=== PATIENT | female | born 1970 | race Caucasian/White ===

== ENCOUNTER → 2017-10-14 | Outpatient (CLI) | payer OTHER ==
--- NOTE | 2017-10-15 11:29 | MM ---
Reason for exam: screening (asymptomatic). Last mammogram was performed 1 year ago. History: Patient is postmenopausal. Family history of breast cancer in grandmother. Physical Findings: A clinical breast exam by your physician is recommended on an annual basis and results should be correlated with mammographic findings. MG Screening Mammo w CAD Bilateral CC and MLO view(s) were taken. Prior study comparison: October 02, 2016, bilateral MG screening mammo w CAD. July 24, 2015, bilateral MG screening mammo w CAD. The breast tissue is almost entirely fat. Stable benign calcifications. No significant changes when compared with prior studies. ASSESSMENT: Benign, BI-RAD 2 RECOMMENDATION: Routine screening mammogram of both breasts in 1 year.
== END ==
LOC: RADMAMWWP 12:30
PROVIDERS: ATTEND Internal Medicine
DX: Z12.31 Encounter for screening mammogram for malignant neoplasm of breast (principal)

== ENCOUNTER 2018-04-28 12:43 | Inpatient (IN) | payer OTHER ==
[2018-04-28] MEDS ORDERED: SODIUM CHLORIDE 0.9% 1,000 ML IV STA (13:18)
[2018-04-28] MEDS ORDERED: methylPREDNISolone SOD SUCCI 125 MG/2 ML VIAL IV STA (13:18)
[2018-04-28] MEDS ORDERED: IPRATROPIUM-ALBUTEROL 3 ML NEB INHALATION STA (13:18)
--- NOTE | 2018-04-28 13:22 | ED ---
General Adult HPI - General Chief complaint: Shortness of Breath Stated complaint: SOB Time Seen by Provider: 04/28/18 13:08 Source: patient, EMS, RN notes reviewed Mode of arrival: EMS Limitations: no limitations - History of Present Illness Initial comments: Chief complaint and history of present illness this is a 47-year-old female with a history in the past of asthma. She's not had trouble for over 5 years while receiving her Xolair shots. 2 days ago she started having a cough. Wheezing. Used to grandsons albuterol to good effect but persists. Emergency room her pulse ox was in the high 80s on nasal O2 after updraft with 95. Patient continues to be wheezing. No pain other than from frequent coughing. No sweats. - Related Data Home Medications Medication Instructions Recorded Confirmed Albuterol Inhaler [Ventolin Hfa 2 puff INHALATION RT-Q6H PRN 04/28/18 04/28/18 Inhaler] Albuterol Nebulized [Ventolin 2.5 mg INHALATION RT-Q6H PRN 04/28/18 04/28/18 Nebulized] diphenhydrAMINE HCL [Benadryl] 25 mg PO Q6H PRN 04/28/18 04/28/18 predniSONE See Taper PO DAILY 04/28/18 04/28/18 Allergies Allergy/AdvReac Type Severity Reaction Status Date / Time No Known Allergies Allergy Verified 04/28/18 13:08 Review of Systems ROS Statement: Those systems with pertinent positive or pertinent negative responses have been documented in the HPI. Review of systems. No headache or visual acuity changes complains of being short of breath with frequent coughing. No chest heaviness or pain other than for muscle pain from frequent coughing. No back pain no nausea no vomiting no abdominal pain no neuro deficits. All systems are reviewed. Past medical problems significant for asthma, GERD, hyperlipidemia, migraines and hypothyroidism. Her surgeries include a partial hysterectomy, wisdom teeth extraction and bunionectomies. Family history includes cancers of lung, skin and breast. Patient quit smoking just 7 days ago. Strongly advised this never smoke again. Dr. lozano doctor about ways to help her stop smoking. Denies alcohol use. No known ALLERGIES. ROS Other: All systems not noted in ROS Statement are negative. Past Medical History Past Medical History: Asthma, GERD/Reflux, Hyperlipidemia Additional Past Medical History / Comment(s): migraines, hypothyroidism History of Any Multi-Drug Resistant Organisms: None Reported Past Surgical History: Hysterectomy Additional Past Surgical History / Comment(s): wisdom, bunions, Past Psychological History: No Psychological Hx Reported Smoking Status: Former smoker Past Alcohol Use History: None Reported Past Drug Use History: Marijuana General Exam - General Exam Comments Initial Comments: General: The patient is awake and alert, here because of shortness of breath and frequent coughing. No fever. Vital signs temp 98.8 pulse 89 respiratory rate 20 pulse ox 95% on 2 L. Blood pressure 150/78 Eye: Pupils are equal, round and reactive to light, extra-ocular movements are intact ; there is normal conjunctiva bilaterally. No signs of icterus. Ears, nose, mouth and throat: There are moist mucous membranes and no oral lesions. Neck: The neck is supple, there is no tenderness or JVD. Cardiovascular: There is a regular rate and rhythm. No murmur, rub or gallop is appreciated. Respiratory: Inspiratory and expiratory wheezing. Gastrointestinal: Soft, non-distended, non-tender abdomen without masses or organomegaly noted. There is no rebound or guarding present. No CVA tenderness. Bowel sounds are unremarkable. Back: There is no tenderness to palpation in the midline. There is no obvious deformity. No rashes noted. Musculoskeletal: Normal ROM, no tenderness, There is no pedal edema. There is no calf tenderness or swelling. Sensation intact. Pulses equal bilaterally 2+. Neurological: No neuro deficits Skin: Recently treated for some poisoning with steroids and Benadryl. And since subsided. Psychiatric: Cooperative, Limitations: no limitations Course Vital Signs 04/28/18 04/28/18 04/28/18 12:51 13:30 13:39 Temperature 98.8 F Pulse Rate 89 108 H 110 H Respiratory 20 Rate Blood Pressure 150/78 O2 Sat by Pulse 95 Oximetry Medical Decision Making - Medical Decision Making Medical decision making; this is a 47-year-old female here for complaint of difficulty breathing. Past history of asthma. Recently stopped smoking just 7 days ago. Coughed for the past 2 days complains of musculoskeletal discomfort to her chest. EKG was done and does not show any acute ST elevation. Otherwise normal sinus rhythm with a rate of only 83. Labs show white count of 14.8 hemoglobin 16 hematocrit of 47 with an INR 1.0. D-dimer 0.29 BUN 13 creatinine 0.7 GFR greater than 90. Potassium 3.7 glucose 116. Chest x-ray was done AP and lateral view and reviewed by radiologist his findings are there is no focal airspace opacity, pleural effusion, or pneumothorax seen. Cardiac silhouette size within normal limits. The osseous structures are intact. There is bronchial wall thickening. Impression correlate for bronchitis, reactive airway disease, follow-up is indicated. As read by Dr. Griffith. The plant this time the patient be admitted to her family physician. Started on Levaquin. Continued with updrafts and IV steroids. - Lab Data Result diagrams: 04/28/18 13:40 04/28/18 13:40 Lab Results 04/28/18 04/28/18 04/28/18 Range/Units 13:40 13:40 13:40 WBC 14.8 H (3.8-10.6) k/uL RBC 5.55 H (3.80-5.40) m/uL Hgb 16.0 (11.4-16.0) gm/dL Hct 47.5 H (34.0-46.0) % MCV 85.6 (80.0-100.0) fL MCH 28.8 (25.0-35.0) pg MCHC 33.7 (31.0-37.0) g/dL RDW 14.1 (11.5-15.5) % Plt Count 216 (150-450) k/uL Neutrophils % 89 % Lymphocytes % 5 % Monocytes % 5 % Eosinophils % 1 % Basophils % 0 % Neutrophils # 13.1 H (1.3-7.7) k/uL Lymphocytes # 0.7 L (1.0-4.8) k/uL Monocytes # 0.7 (0-1.0) k/uL Eosinophils # 0.1 (0-0.7) k/uL Basophils # 0.0 (0-0.2) k/uL PT 10.1 (9.0-12.0) sec INR 1.0 (<1.2) APTT 22.9 (22.0-30.0) sec D-Dimer 0.29 (<0.60) mg/L FEU Sodium 141 (137-145) mmol/L Potassium 3.7 (3.5-5.1) mmol/L Chloride 103 (98-107) mmol/L Carbon Dioxide 25 (22-30) mmol/L Anion Gap 13 mmol/L BUN 13 (7-17) mg/dL Creatinine 0.70 (0.52-1.04) mg/dL Est GFR (CKD-EPI)AfAm >90 (>60 ml/min/1.73 sqM) Est GFR (CKD-EPI)NonAf >90 (>60 ml/min/1.73 sqM) Glucose 116 H (74-99) mg/dL Calcium 9.4 (8.4-10.2) mg/dL Total Bilirubin 0.7 (0.2-1.3) mg/dL AST 17 (14-36) U/L ALT 30 (9-52) U/L Alkaline Phosphatase 97 (38-126) U/L NT-Pro-B Natriuret Pep pg/mL Total Protein 7.0 (6.3-8.2) g/dL Albumin 4.4 (3.5-5.0) g/dL 04/28/18 Range/Units 13:40 WBC (3.8-10.6) k/uL RBC (3.80-5.40) m/uL Hgb (11.4-16.0) gm/dL Hct (34.0-46.0) % MCV (80.0-100.0) fL MCH (25.0-35.0) pg MCHC (31.0-37.0) g/dL RDW (11.5-15.5) % Plt Count (150-450) k/uL Neutrophils % % Lymphocytes % % Monocytes % % Eosinophils % % Basophils % % Neutrophils # (1.3-7.7) k/uL Lymphocytes # (1.0-4.8) k/uL Monocytes # (0-1.0) k/uL Eosinophils # (0-0.7) k/uL Basophils # (0-0.2) k/uL PT (9.0-12.0) sec INR (<1.2) APTT (22.0-30.0) sec D-Dimer (<0.60) mg/L FEU Sodium (137-145) mmol/L Potassium (3.5-5.1) mmol/L Chloride (98-107) mmol/L Carbon Dioxide (22-30) mmol/L Anion Gap mmol/L BUN (7-17) mg/dL Creatinine (0.52-1.04) mg/dL Est GFR (CKD-EPI)AfAm (>60 ml/min/1.73 sqM) Est GFR (CKD-EPI)NonAf (>60 ml/min/1.73 sqM) Glucose (74-99) mg/dL Calcium (8.4-10.2) mg/dL Total Bilirubin (0.2-1.3) mg/dL AST (14-36) U/L ALT (9-52) U/L Alkaline Phosphatase (38-126) U/L NT-Pro-B Natriuret Pep 203 pg/mL Total Protein (6.3-8.2) g/dL Albumin (3.5-5.0) g/dL Disposition Clinical Impression: Pneumonia Disposition: ADMITTED IP TO THIS HOSP Condition: Fair Is patient prescribed a controlled substance at d/c from ED?: No Referrals: Sreekanth Ledbetter MD [Primary Care Provider] - 1-2 days
[2018-04-28 13:50] LABS: Basophils % (A) 0 %; Eosinophils # (A) 0.1 k/uL (0-0.7); Eosinophils % (A) 1 %; HCT 47.5 % (34.0-46.0); Lymphocytes # (A) 0.7 k/uL (1.0-4.8); Lymphocytes % (A) 5 %; MCH 28.8 pg (25.0-35.0); MCHC 33.7 g/dL (31.0-37.0); MCV 85.6 fL (80.0-100.0); Mean Platelet Volume 6.3; Monocytes # (A) 0.7 k/uL (0-1.0); Monocytes % (A) 5 %; Neutrophils # (A) 13.1 k/uL (1.3-7.7); Neutrophils % (A) 89 %; Platelet Count 216 k/uL (150-450); RBC 5.55 m/uL (3.80-5.40); RDW 14.1 % (11.5-15.5); WBC 14.8 k/uL (3.8-10.6)
--- NOTE | 2018-04-28 13:56 | XR ---
EXAMINATION TYPE: XR chest 2V DATE OF EXAM: 04/28/2018 COMPARISON: NONE HISTORY: Difficulty breathing TECHNIQUE: Frontal and lateral views of the chest are obtained. FINDINGS: There is no focal air space opacity, pleural effusion, or pneumothorax seen. The cardiac silhouette size is within normal limits. The osseous structures are intact. There is bronchial wall thickening. IMPRESSION: Correlate for bronchitis, reactive airways disease, follow-up as indicated.
[2018-04-28 13:59] LABS: ALT 30 U/L (9-52); AST 17 U/L (14-36); Albumin 4.4 g/dL (3.5-5.0); Alkaline Phosphatase 97 U/L (38-126); Anion Gap 13 mmol/L; Blood Urea Nitrogen 13 mg/dL (7-17); Calcium 9.4 mg/dL (8.4-10.2); Carbon Dioxide 25 mmol/L (22-30); Chloride 103 mmol/L (98-107); Glucose 116 mg/dL (74-99); Potassium 3.7 mmol/L (3.5-5.1); Sodium 141 mmol/L (137-145); Total Bilirubin 0.7 mg/dL (0.2-1.3)
[2018-04-28 14:13] LABS: D-Dimer 0.29 mg/L FEU (<0.60); Partial Thromboplastin Time 22.9 sec (22.0-30.0); Prothrombin Time 10.1 sec (9.0-12.0)
[2018-04-28 14:16] LABS: Creatine Kinase 37 U/L (30-135)
[2018-04-28] MEDS ORDERED: LEVOFLOXACIN 500MG-D5W PMX 500 MG in DEXTROSE/WATER 1 100ML.BAG IVPB STA (14:27)
[2018-04-28 14:29] LABS: Creatine Kinase MB 0.7 ng/mL (0.0-2.4); Troponin I <0.012 ng/mL (0.000-0.034)
[2018-04-28] MEDS ORDERED: NALOXONE 0.4 MG/ML 1 ML VIAL IV PRN (14:30)
[2018-04-28] MEDS ORDERED: ALBUTEROL NEBULIZED 2.5 MG/3 ML INHALATION PRN (14:35)
[2018-04-28] MEDS: SODIUM CHLORIDE 0.9% 1,000 ML IV SCH (14:50)
[2018-04-28] MEDS: ACETAMINOPHEN TAB 325 MG TAB PO PRN ×2 (15:39→21:00)
[2018-04-28 17:06] LABS: Glucose,Whole Blood 170 mg/dL (75-99)
[2018-04-28] MEDS: IPRATROPIUM-ALBUTEROL 3 ML NEB INHALATION PRN (20:36)
[2018-04-28 20:59] LABS: Glucose,Whole Blood 193 mg/dL (75-99)
[2018-04-28] MEDS: INSULIN ASPART 100 UNIT/ML 1 ML 10 ML VIAL SQ SCH (21:00)
[2018-04-28] MEDS: methylPREDNISolone SOD SUCCI 125 MG/2 ML VIAL IV SCH (23:40)
[2018-04-29] MEDS: SODIUM CHLORIDE 0.9% 1,000 ML IV SCH ×2 (06:16→16:49)
[2018-04-29 07:13] LABS: Glucose,Whole Blood 132 mg/dL (75-99)
[2018-04-29] MEDS: IPRATROPIUM-ALBUTEROL 3 ML NEB INHALATION PRN (07:38)
[2018-04-29 07:51] LABS: Basophils % (A) 0 %; Eosinophils % (A) 0 %; HCT 45.3 % (34.0-46.0); HGB 15.1 gm/dL (11.4-16.0); Lymphocytes # (A) 0.9 k/uL (1.0-4.8); Lymphocytes % (A) 4 %; MCH 28.5 pg (25.0-35.0); MCHC 33.3 g/dL (31.0-37.0); MCV 85.7 fL (80.0-100.0); Mean Platelet Volume 6.2; Monocytes # (A) 0.6 k/uL (0-1.0); Monocytes % (A) 3 %; Neutrophils # (A) 19.5 k/uL (1.3-7.7); Neutrophils % (A) 92 %; Platelet Count 247 k/uL (150-450); RBC 5.29 m/uL (3.80-5.40); RDW 13.7 % (11.5-15.5); WBC 21.2 k/uL (3.8-10.6)
[2018-04-29] MEDS: ACETAMINOPHEN TAB 325 MG TAB PO PRN ×2 (08:22→16:48)
[2018-04-29] MEDS: methylPREDNISolone SOD SUCCI 125 MG/2 ML VIAL IV SCH ×3 (08:22→23:20)
[2018-04-29] MEDS: INSULIN ASPART 100 UNIT/ML 1 ML 10 ML VIAL SQ SCH ×4 (08:25→21:43)
[2018-04-29] MEDS ORDERED: IPRATROPIUM-ALBUTEROL 3 ML NEB INHALATION PRN (08:41)
[2018-04-29] MEDS: FAMOTIDINE 20 MG TAB PO SCH (09:05)
[2018-04-29] MEDS: ENOXAPARIN 40 MG/0.4 ML SYRINGE SQ SCH (09:05)
--- NOTE | 2018-04-29 10:13 | P.HPIM ---
History of Present Illness H&P Date: 04/29/18 Chief Complaint: Worsening shortness of breath and cough This is a 47-year-old female with a known past medical history of asthma, nicotine dependence, GERD, hyperlipidemia and migraines. Patient presents to the emergency room with a 2 day complaint of worsening shortness of breath and cough. Patient reports using her grandson's albuterol nebulizer treatment and also needing her albuterol inhaler. Symptoms not improved. And came into the emergency room for further evaluation and treatment. Pulse ox was 80% on oxygen. Per ER report after updraft went up to 95%. Chest x-ray showed a possible bronchitis. White count elevated at 14.8. Troponins were negative 2 and d-dimer was normal. She was started on Levaquin and IV Solu-Medrol and bronchodilators for an acute COPD exacerbation and bronchitis. Patient does report the cough being productive. Pulmonary service has been consulted. Patient reports using Xolair shots over the past 5 years to help control her symptoms. This is her first hospitalization. She was recently on oral prednisone and Benadryl for heat rash per patient. Patient denies any fever chills or sweats. Denies any nausea or vomiting. Denies any bowel movement changes or urinary symptoms. She is reporting extreme shortness of breath with any activity. Review of Systems Please refer to HPI otherwise unremarkable Past Medical History Past Medical History: Asthma, GERD/Reflux, Hyperlipidemia Additional Past Medical History / Comment(s): migraines, hypothyroidism History of Any Multi-Drug Resistant Organisms: None Reported Past Surgical History: Hysterectomy Additional Past Surgical History / Comment(s): partial hysterectomy ,wisdom, bunionectomy,d&c Past Anesthesia/Blood Transfusion Reactions: No Reported Reaction Additional Past Anesthesia/Blood Transfusion Reaction / Comment(s): lives with sister. is independant. 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 has nebulizer. Smoking Status: Current every day smoker - Past Family History Mother Family Medical History: Coronary Artery Disease (CAD) Additional Family Medical History / Comment(s): triple vessel cabg Father Family Medical History: Cancer Additional Family Medical History / Comment(s): smoker, etoh, lung cancer Medications and Allergies Home Medications Medication Instructions Recorded Confirmed Type Albuterol Inhaler [Ventolin Hfa 2 puff INHALATION RT-Q6H PRN 04/28/18 04/28/18 History Inhaler] Albuterol Nebulized [Ventolin 2.5 mg INHALATION RT-Q6H PRN 04/28/18 04/28/18 History Nebulized] diphenhydrAMINE HCL [Benadryl] 25 mg PO Q6H PRN 04/28/18 04/28/18 History predniSONE See Taper PO DAILY 04/28/18 04/28/18 History Allergies Allergy/AdvReac Type Severity Reaction Status Date / Time No Known Allergies Allergy Verified 04/28/18 13:08 Physical Exam Vitals: Vital Signs Temp Pulse Pulse Resp BP BP Pulse Ox 04/29/18 07:50 88 04/29/18 07:41 80 91 L 04/29/18 06:35 97.1 F L 87 16 134/77 92 L 04/28/18 23:00 98.3 F 83 20 120/72 91 L 04/28/18 20:49 96 04/28/18 20:36 92 90 L 04/28/18 16:50 18 04/28/18 15:49 18 04/28/18 15:27 97.7 F 86 20 117/65 90 L 04/28/18 14:49 92 20 148/70 92 L 04/28/18 13:39 110 H 04/28/18 13:30 108 H 04/28/18 12:51 98.8 F 89 20 150/78 95 Intake and Output 04/28/18 04/29/18 04/29/18 22:59 06:59 14:59 Other: Voiding Method Toilet # Voids 2 Head normocephalic Neck supple Lungs wheezing and coarse breath sounds noted bilaterally Heart regular rate and rhythm S1-S2, no rub or gallop Abdomen is soft nontender nondistended positive bowel sounds no hepatosplenomegaly Extremities no edema Neuro alert and orientated to 3 Results CBC & Chem 7: 04/29/18 07:27 04/28/18 13:40 Labs: Abnormal Lab Results - Last 24 Hours (Table) 04/28/18 04/28/18 04/28/18 Range/Units 13:40 13:40 17:03 WBC 14.8 H (3.8-10.6) k/uL RBC 5.55 H (3.80-5.40) m/uL Hct 47.5 H (34.0-46.0) % Neutrophils # 13.1 H (1.3-7.7) k/uL Lymphocytes # 0.7 L (1.0-4.8) k/uL Glucose 116 H (74-99) mg/dL POC Glucose (mg/dL) 170 H (75-99) mg/dL 04/28/18 04/29/18 04/29/18 Range/Units 20:57 07:11 07:27 WBC 21.2 H (3.8-10.6) k/uL RBC (3.80-5.40) m/uL Hct (34.0-46.0) % Neutrophils # 19.5 H (1.3-7.7) k/uL Lymphocytes # 0.9 L (1.0-4.8) k/uL Glucose (74-99) mg/dL POC Glucose (mg/dL) 193 H 132 H (75-99) mg/dL Thrombosis Risk Factor Assmnt - Choose All That Apply Each Factor Represents 1 point: Abnormal pulmonary function (COPD), Age 41-60 years, Obesity (BMI >25) Other Risk Factors: No Thrombosis Risk Factor Assessment Total Risk Factor Score: 3 Thrombosis Risk Factor Assessment Level: Moderate Risk Assessment and Plan Assessment: 1. Acute COPD exacerbation: Continue IV Solu-Medrol 60 mg every 8 hours. Change bronchodilators to 4 times a day and as needed every 2 hours. Pulmonary service has been consulted 2. Acute tracheobronchitis: No pneumonia on chest x-ray. Continue with the Levaquin. Check sputum culture. 3. History of mild intermittent asthma 4. Nicotine dependence: Patient reports quitting smoking 7 days ago. Discussed smoking cessation greater than 3 minutes 5. Hyperglycemia likely related to steroids. Continue sliding scale coverage 6. Leukocytosis: Likely related to her bronchitis and steroids GI prophylaxis Pepcid and DVT prophylaxis Lovenox Time with Patient: Greater than 30 (Greater than 60% of the total time spent in counseling and coordination of care.I performed an examination of the patient and discussed their management with the physician Comfort Station Attendant. I have reviewed the Physician Comfort Station Attendant's notes and agree with the documented findings and plan of care)
[2018-04-29] MEDS: IPRATROPIUM-ALBUTEROL 3 ML NEB INHALATION SCH ×3 (11:24→19:35)
[2018-04-29 12:31] LABS: Glucose,Whole Blood 157 mg/dL (75-99)
--- NOTE | 2018-04-29 13:18 | P.CNPUL ---
History of Present Illness Consult date: 04/29/18 Requesting physician: Sreekanth Ledbetter Reason for consult: dyspnea Chief complaint: shortness of breath History of present illness: This is a 47-year-old female patient being seen examined and evaluated today for consultation. This patient is well-known to our services. This patient came into the emergency room with complaints of progressive worsening shortness of breath that had been lasting over the last 2-3 days. She also complains of a cough. Patient has been on Xolair for approximately 5 years in our office and her chronic severe persistent asthma has been well controlled with that. She was not needing any other controller meds over the last 5 years. However in the last day or so she did use her son's albuterol inhaler without relief. Therefore she came into the emergency room. Her oxygen saturation was 80% with supplemental oxygen and then improved up to 95% post-nebulizer treatments. Her chest x-ray was reviewed and did show consistent findings of bronchitis. She had a WBC of 14.8. Patient was initiated on antibiotics and IV steroids and admitted to the hospital for further evaluation and workup. The patient is currently a smoker approximately 2 packs per week for 30 years. She is afebrile denies any further complaints. All labs and reports have been reviewed. Upon examination the patient was resting up in bed on 4 L of supplemental oxygen she denies home oxygen use. She continues to have the shortness of breath with exertion and activity as well as a cough. She has been unable to provide a sputum sample. Of note the patient's last Xolair shot was last Wednesday Review of Systems 14 point review of systems was completed and negative unless noted above in the HPI. Past Medical History Past Medical History: Asthma, GERD/Reflux, Hyperlipidemia Additional Past Medical History / Comment(s): migraines, hypothyroidism History of Any Multi-Drug Resistant Organisms: None Reported Past Surgical History: Hysterectomy Additional Past Surgical History / Comment(s): partial hysterectomy ,wisdom, bunionectomy,d&c Past Anesthesia/Blood Transfusion Reactions: No Reported Reaction Additional Past Anesthesia/Blood Transfusion Reaction / Comment(s): lives with sister. is independant. 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 has nebulizer. Smoking Status: Current every day smoker - Past Family History Mother Family Medical History: Coronary Artery Disease (CAD) Additional Family Medical History / Comment(s): triple vessel cabg Father Family Medical History: Cancer Additional Family Medical History / Comment(s): smoker, etoh, lung cancer Medications and Allergies Home Medications Medication Instructions Recorded Confirmed Type Albuterol Inhaler [Ventolin Hfa 2 puff INHALATION RT-Q6H PRN 04/28/18 04/28/18 History Inhaler] Albuterol Nebulized [Ventolin 2.5 mg INHALATION RT-Q6H PRN 04/28/18 04/28/18 History Nebulized] diphenhydrAMINE HCL [Benadryl] 25 mg PO Q6H PRN 04/28/18 04/28/18 History predniSONE See Taper PO DAILY 04/28/18 04/28/18 History Allergies Allergy/AdvReac Type Severity Reaction Status Date / Time No Known Allergies Allergy Verified 04/28/18 13:08 Physical Exam Vitals: Vital Signs Temp Pulse Pulse Resp BP BP Pulse Ox 04/29/18 11:36 86 04/29/18 11:26 90 04/29/18 07:50 88 04/29/18 07:45 16 04/29/18 07:41 80 91 L 04/29/18 06:35 97.1 F L 87 16 134/77 92 L 04/28/18 23:00 98.3 F 83 20 120/72 91 L 04/28/18 20:49 96 04/28/18 20:36 92 90 L 04/28/18 16:50 18 04/28/18 15:49 18 04/28/18 15:27 97.7 F 86 20 117/65 90 L 04/28/18 14:49 92 20 148/70 92 L 04/28/18 13:39 110 H 04/28/18 13:30 108 H Intake and Output 04/28/18 04/29/18 04/29/18 22:59 06:59 14:59 Other: Voiding Method Toilet # Voids 2 GENERAL EXAM: Alert, active, comfortable in no apparent distress. HEAD: Normocephalic. EYES: Normal reaction of pupils, equal size. NOSE: Clear with pink turbinates. THROAT: No erythema or exudates. NECK: No masses, no JVD. CHEST: No chest wall deformity. LUNGS: Lungs noted to be coarse throughout with an citrate and expiratory wheezing bilaterally CVS: S1 and S2 normal with no audible mumurs, regular rhythm. ABDOMEN: No hepatosplenomegaly, normal bowel sounds, no guarding or rigidity. EXTREMITIES: No edema noted, pedal pulses palpable. CENTRAL NERVOUS SYSTEM: No focal deficits, tone is normal in all 4 extremities. Results - Laboratory Findings CBC and BMP: 04/29/18 07:27 04/28/18 13:40 PT/INR, D-dimer PT 10.1 sec (9.0-12.0) 04/28/18 13:40 INR 1.0 (<1.2) 04/28/18 13:40 D-Dimer 0.29 mg/L FEU (<0.60) 04/28/18 13:40 Abnormal lab findings: Abnormal Labs 04/28/18 04/28/18 04/28/18 13:40 13:40 17:03 WBC 14.8 H RBC 5.55 H Hct 47.5 H Neutrophils # 13.1 H Lymphocytes # 0.7 L Glucose 116 H POC Glucose (mg/dL) 170 H 04/28/18 04/29/18 04/29/18 20:57 07:11 07:27 WBC 21.2 H RBC Hct Neutrophils # 19.5 H Lymphocytes # 0.9 L Glucose POC Glucose (mg/dL) 193 H 132 H 04/29/18 12:29 WBC RBC Hct Neutrophils # Lymphocytes # Glucose POC Glucose (mg/dL) 157 H - Diagnostic Findings Chest x-ray: report reviewed, image reviewed Assessment and Plan Assessment: Assessment Acute exacerbation of severe chronic persistent asthma Acute exacerbation of COPD Acute tracheobronchitis Nicotine dependence Plan Medications have been reviewed and will be continued as ordered. Continue with IV Solu-Medrol as well as antibiotics Continue with pulmonary hygiene, coughing and deep breathing exercises, and supportive care. Supplemental oxygen to maintain oxygen saturations of 92% or better. Continue nebulizer treatments. Add budesonide Initiate incentive spirometer and check peak flows GI and DVT prophylaxis. Obtain sputum culture Continue Xolair outpatient We will continue to monitor labs/results and adjust treatment as necessary. Further recommendations pending. I performed an examination of the patient and discussed their management with the nurse practitioner. I have reviewed the nurse practitioner's note and agree with the documented findings and plan of care.
[2018-04-29] MEDS ORDERED: LEVOFLOXACIN 500MG-D5W PMX 500 MG in DEXTROSE/WATER 1 100ML.BAG IVPB SCH (16:00)
[2018-04-29 17:05] LABS: Glucose,Whole Blood 179 mg/dL (75-99)
[2018-04-29] MEDS: BUDESONIDE 0.5 MG/2 ML NEBU INHALATION SCH (19:34)
[2018-04-29 21:19] LABS: Glucose,Whole Blood 177 mg/dL (75-99)
[2018-04-30] MEDS ORDERED: CALCIUM CARBONATE 500 MG CHEWABLE PO PRN (01:25)
[2018-04-30] MEDS ORDERED: CALCIUM CARBONATE 500 MG CHEWABLE PO ONE (01:27)
[2018-04-30] MEDS: SODIUM CHLORIDE 0.9% 1,000 ML IV SCH ×2 (06:25→16:17)
[2018-04-30 07:22] LABS: Glucose,Whole Blood 144 mg/dL (75-99)
[2018-04-30 07:49] LABS: Basophils % (A) 0 %; Eosinophils % (A) 0 %; HCT 42.4 % (34.0-46.0); HGB 13.7 gm/dL (11.4-16.0); Lymphocytes # (A) 0.9 k/uL (1.0-4.8); Lymphocytes % (A) 4 %; MCH 27.3 pg (25.0-35.0); MCHC 32.4 g/dL (31.0-37.0); MCV 84.5 fL (80.0-100.0); Monocytes # (A) 0.7 k/uL (0-1.0); Monocytes % (A) 3 %; Neutrophils # (A) 19.6 k/uL (1.3-7.7); Neutrophils % (A) 92 %; Platelet Count 275 k/uL (150-450); RBC 5.02 m/uL (3.80-5.40); RDW 13.8 % (11.5-15.5); WBC 21.3 k/uL (3.8-10.6)
[2018-04-30 08:07] LABS: ALT 29 U/L (9-52); AST 21 U/L (14-36); Albumin 3.6 g/dL (3.5-5.0); Alkaline Phosphatase 75 U/L (38-126); Anion Gap 11 mmol/L; Blood Urea Nitrogen 15 mg/dL (7-17); Calcium 9.7 mg/dL (8.4-10.2); Carbon Dioxide 22 mmol/L (22-30); Chloride 108 mmol/L (98-107); Glucose 131 mg/dL (74-99); Potassium 4.1 mmol/L (3.5-5.1); Sodium 141 mmol/L (137-145); Total Bilirubin 0.4 mg/dL (0.2-1.3); Total Protein 6.2 g/dL (6.3-8.2)
[2018-04-30] MEDS: ENOXAPARIN 40 MG/0.4 ML SYRINGE SQ SCH (08:07)
[2018-04-30] MEDS: FAMOTIDINE 20 MG TAB PO SCH (08:07)
[2018-04-30] MEDS: INSULIN ASPART 100 UNIT/ML 1 ML 10 ML VIAL SQ SCH ×4 (08:07→21:35)
[2018-04-30] MEDS: methylPREDNISolone SOD SUCCI 125 MG/2 ML VIAL IV SCH ×3 (08:07→23:26)
[2018-04-30] MEDS: LEVOFLOXACIN 500 MG TAB PO SCH (08:07)
[2018-04-30] MEDS: BUDESONIDE 0.5 MG/2 ML NEBU INHALATION SCH ×2 (08:08→20:12)
[2018-04-30] MEDS: IPRATROPIUM-ALBUTEROL 3 ML NEB INHALATION SCH ×4 (08:08→20:11)
[2018-04-30] MEDS: ACETAMINOPHEN TAB 325 MG TAB PO PRN ×2 (11:11→23:24)
[2018-04-30 12:01] LABS: Glucose,Whole Blood 126 mg/dL (75-99)
--- NOTE | 2018-04-30 13:08 | PN ---
PROGRESS NOTE DATE OF SERVICE: 04/30/2018. She is less short of breath, but feels tired. On physical examination, her blood pressure is 114/70, respiratory rate of 18, pulse rate of 77, temperature 98, O2 saturation on 4 L by nasal cannula is 92%. HEENT reveals pupils are equal. Chest reveals prolonged expiration with expiratory wheeze. Cardiovascular system reveals a S1, S2. Abdomen is soft. There is no edema. White count is 21.3 thousand, hemoglobin of 13.7, sodium 141, potassium 4.1, chloride 108, bicarb 22, BUN 15, creatinine 0.61. IMPRESSION: At this time: 1. Severe asthma with acute exacerbation. 2. Nicotine dependence. Continue IV Solu-Medrol, antibiotics. Increases activity level. Continue aerosolized steroids. Her prognosis at this time is fair. MMODL / IJN: [id number] /
--- NOTE | 2018-04-30 13:49 | P.PN ---
Subjective Progress Note Date: 04/30/18 This is a 47-year-old female with a known past medical history of asthma, nicotine dependence, GERD, hyperlipidemia and migraines. Patient presents to the emergency room with a 2 day complaint of worsening shortness of breath and cough. Patient reports using her grandson's albuterol nebulizer treatment and also needing her albuterol inhaler. Symptoms not improved. And came into the emergency room for further evaluation and treatment. Pulse ox was 80% on oxygen. Per ER report after updraft went up to 95%. Chest x-ray showed a possible bronchitis. White count elevated at 14.8. Troponins were negative 2 and d-dimer was normal. She was started on Levaquin and IV Solu-Medrol and bronchodilators for an acute COPD exacerbation and bronchitis. Patient does report the cough being productive. Pulmonary service has been consulted. Patient reports using Xolair shots over the past 5 years to help control her symptoms. This is her first hospitalization. She was recently on oral prednisone and Benadryl for heat rash per patient. Patient denies any fever chills or sweats. Denies any nausea or vomiting. Denies any bowel movement changes or urinary symptoms. She is reporting extreme shortness of breath with any activity. On 04/30/2018 patient is feeling better she has less shortness of breath and cough she is still having significant wheezing there is no headache or sore throat no chest pain no palpitation no nausea or vomiting no abdominal pain no diarrhea or constipation and no urinary symptoms. Patient is maintained on IV antibiotic and IV steroids and has shown some improvement. Objective - Vital Signs Vital signs: Vital Signs Temp 98.0 F 04/30/18 06:40 Pulse 92 04/30/18 13:27 Resp 18 04/30/18 06:40 BP 114/70 04/30/18 06:40 Pulse Ox 92 L 04/30/18 06:40 Intake & Output 04/29/18 04/30/18 04/30/18 18:59 06:59 18:59 Intake Total 800 Balance 800 Intake: Oral 800 Other: Voiding Method Toilet # Voids 2 1 - Exam Head normocephalic and atraumatic Neck supple no JVD Lungs wheezing and coarse breath sounds noted bilaterally Heart regular rate and rhythm S1-S2, no rub or gallop Abdomen is soft nontender nondistended positive bowel sounds no hepatosplenomegaly Extremities no edema Neuro alert and orientated to 3 - Labs CBC & Chem 7: 04/30/18 06:55 04/30/18 06:55 Labs: Abnormal Lab Results - Last 24 Hours (Table) 04/29/18 04/29/18 04/30/18 Range/Units 17:03 21:13 06:55 WBC 21.3 H (3.8-10.6) k/uL Neutrophils # 19.6 H (1.3-7.7) k/uL Lymphocytes # 0.9 L (1.0-4.8) k/uL Chloride (98-107) mmol/L Glucose (74-99) mg/dL POC Glucose (mg/dL) 179 H 177 H (75-99) mg/dL Total Protein (6.3-8.2) g/dL 04/30/18 04/30/18 04/30/18 Range/Units 06:55 07:20 11:59 WBC (3.8-10.6) k/uL Neutrophils # (1.3-7.7) k/uL Lymphocytes # (1.0-4.8) k/uL Chloride 108 H (98-107) mmol/L Glucose 131 H (74-99) mg/dL POC Glucose (mg/dL) 144 H 126 H (75-99) mg/dL Total Protein 6.2 L (6.3-8.2) g/dL Microbiology - Last 24 Hours (Table) 04/29/18 15:45 Gram Stain - Preliminary Sputum 04/28/18 13:40 Blood Culture - Preliminary Blood No Growth after 24 hours Assessment and Plan Plan: 1. Acute COPD exacerbation: Continue IV Solu-Medrol 60 mg every 8 hours. Change bronchodilators to 4 times a day and as needed every 2 hours. Pulmonary service has been consulted 2. Acute tracheobronchitis: No pneumonia on chest x-ray. Continue with the Levaquin. Check sputum culture. 3. History of mild intermittent asthma 4. Nicotine dependence: Patient reports quitting smoking 7 days ago. Discussed smoking cessation greater than 3 minutes 5. Hyperglycemia likely related to steroids. Continue sliding scale coverage 6. Leukocytosis: Likely related to her bronchitis and steroids Patient improving but still has significant symptoms Continue with current management patient is not ready yet for discharge
[2018-04-30 17:07] LABS: Glucose,Whole Blood 154 mg/dL (75-99)
[2018-04-30] MEDS: CALCIUM CARBONATE 500 MG CHEWABLE PO PRN (19:46)
[2018-04-30 21:18] LABS: Glucose,Whole Blood 157 mg/dL (75-99)
[2018-05-01] MEDS: SODIUM CHLORIDE 0.9% 1,000 ML IV SCH ×2 (05:31→15:05)
[2018-05-01 07:00] LABS: Glucose,Whole Blood 137 mg/dL (75-99)
[2018-05-01] MEDS: BUDESONIDE 0.5 MG/2 ML NEBU INHALATION SCH ×2 (07:31→19:42)
[2018-05-01] MEDS: IPRATROPIUM-ALBUTEROL 3 ML NEB INHALATION SCH ×4 (07:31→19:42)
[2018-05-01] MEDS: methylPREDNISolone SOD SUCCI 125 MG/2 ML VIAL IV SCH ×3 (08:07→23:30)
[2018-05-01] MEDS: ENOXAPARIN 40 MG/0.4 ML SYRINGE SQ SCH (08:07)
[2018-05-01] MEDS: INSULIN ASPART 100 UNIT/ML 1 ML 10 ML VIAL SQ SCH ×4 (08:07→22:14)
[2018-05-01] MEDS: FAMOTIDINE 20 MG TAB PO SCH (08:08)
[2018-05-01] MEDS: LEVOFLOXACIN 500 MG TAB PO SCH (08:08)
[2018-05-01 08:38] LABS: Basophils % (A) 0 %; Eosinophils # (A) 0.1 k/uL (0-0.7); Eosinophils % (A) 0 %; HCT 43.7 % (34.0-46.0); HGB 14.5 gm/dL (11.4-16.0); Lymphocytes % (A) 4 %; MCH 28.6 pg (25.0-35.0); MCHC 33.3 g/dL (31.0-37.0); MCV 86.1 fL (80.0-100.0); Mean Platelet Volume 6.4; Monocytes # (A) 0.6 k/uL (0-1.0); Monocytes % (A) 3 %; Neutrophils # (A) 21.5 k/uL (1.3-7.7); Neutrophils % (A) 92 %; Platelet Count 249 k/uL (150-450); RBC 5.08 m/uL (3.80-5.40); RDW 14.1 % (11.5-15.5); WBC 23.4 k/uL (3.8-10.6)
[2018-05-01 08:49] LABS: ALT 37 U/L (9-52); AST 28 U/L (14-36); Albumin 3.7 g/dL (3.5-5.0); Alkaline Phosphatase 80 U/L (38-126); Anion Gap 11 mmol/L; Blood Urea Nitrogen 18 mg/dL (7-17); Calcium 9.9 mg/dL (8.4-10.2); Carbon Dioxide 24 mmol/L (22-30); Chloride 107 mmol/L (98-107); Glucose 122 mg/dL (74-99); Potassium 4.1 mmol/L (3.5-5.1); Sodium 142 mmol/L (137-145); Total Bilirubin 0.4 mg/dL (0.2-1.3); Total Protein 6.3 g/dL (6.3-8.2)
[2018-05-01 11:25] LABS: Glucose,Whole Blood 129 mg/dL (75-99)
--- NOTE | 2018-05-01 13:19 | P.PN ---
Subjective Progress Note Date: 05/01/18 This is a 47-year-old female with a known past medical history of asthma, nicotine dependence, GERD, hyperlipidemia and migraines. Patient presents to the emergency room with a 2 day complaint of worsening shortness of breath and cough. Patient reports using her grandson's albuterol nebulizer treatment and also needing her albuterol inhaler. Symptoms not improved. And came into the emergency room for further evaluation and treatment. Pulse ox was 80% on oxygen. Per ER report after updraft went up to 95%. Chest x-ray showed a possible bronchitis. White count elevated at 14.8. Troponins were negative 2 and d-dimer was normal. She was started on Levaquin and IV Solu-Medrol and bronchodilators for an acute COPD exacerbation and bronchitis. Patient does report the cough being productive. Pulmonary service has been consulted. Patient reports using Xolair shots over the past 5 years to help control her symptoms. This is her first hospitalization. She was recently on oral prednisone and Benadryl for heat rash per patient. Patient denies any fever chills or sweats. Denies any nausea or vomiting. Denies any bowel movement changes or urinary symptoms. She is reporting extreme shortness of breath with any activity. On 04/30/2018 patient is feeling better she has less shortness of breath and cough she is still having significant wheezing there is no headache or sore throat no chest pain no palpitation no nausea or vomiting no abdominal pain no diarrhea or constipation and no urinary symptoms. Patient is maintained on IV antibiotic and IV steroids and has shown some improvement. On 05/01/2018 patient is alert and oriented, still complaining of cough and shortness of breath, still has audible wheezing, otherwise there is no complaints, there is no fever or chills no nausea or vomiting no abdominal pain no diarrhea and no urinary symptoms. She is complaining of occasional acid reflux symptoms. Objective - Vital Signs Vital signs: Vital Signs Temp 97.6 F 05/01/18 06:25 Pulse 76 05/01/18 12:10 Resp 18 05/01/18 06:25 BP 133/80 05/01/18 06:25 Pulse Ox 91 L 05/01/18 06:25 Intake & Output 04/30/18 05/01/18 05/01/18 18:59 06:59 18:59 Intake Total 640 800 Balance 640 800 Intake: Intake, IV Titration 640 Amount Sodium Chloride 0.9% 1, 640 000 ml @ 80 mls/hr IV . [id number] MOO Rx#:[id number] Oral 800 Other: # Voids 1 - Exam Head normocephalic and atraumatic Neck supple no JVD Lungs wheezing and coarse breath sounds noted bilaterally Heart regular rate and rhythm S1-S2, no rub or gallop Abdomen is soft nontender nondistended positive bowel sounds no hepatosplenomegaly Extremities no edema Neuro alert and orientated to 3 - Labs CBC & Chem 7: 05/01/18 08:15 05/01/18 08:15 Labs: Abnormal Lab Results - Last 24 Hours (Table) 04/30/18 04/30/18 05/01/18 Range/Units 17:04 21:14 06:59 WBC (3.8-10.6) k/uL Neutrophils # (1.3-7.7) k/uL BUN (7-17) mg/dL Glucose (74-99) mg/dL POC Glucose (mg/dL) 154 H 157 H 137 H (75-99) mg/dL 05/01/18 05/01/18 05/01/18 Range/Units 08:15 08:15 11:21 WBC 23.4 H (3.8-10.6) k/uL Neutrophils # 21.5 H (1.3-7.7) k/uL BUN 18 H (7-17) mg/dL Glucose 122 H (74-99) mg/dL POC Glucose (mg/dL) 129 H (75-99) mg/dL Microbiology - Last 24 Hours (Table) 04/28/18 13:40 Blood Culture - Preliminary Blood No Growth after 48 hours Assessment and Plan Plan: 1. Acute COPD exacerbation: Continue IV Solu-Medrol 60 mg every 8 hours. Change bronchodilators to 4 times a day and as needed every 2 hours. Pulmonary service has been consulted 2. Acute tracheobronchitis: No pneumonia on chest x-ray. Continue with the Levaquin. Check sputum culture. 3. History of mild intermittent asthma 4. Nicotine dependence: Patient reports quitting smoking 7 days ago. Discussed smoking cessation greater than 3 minutes 5. Hyperglycemia likely related to steroids. Continue sliding scale coverage 6. Leukocytosis: Likely related to her bronchitis and steroids Patient improving but still has significant symptoms Continue with current management patient is not ready yet for discharge
[2018-05-01] MEDS: CALCIUM CARBONATE 500 MG CHEWABLE PO PRN (15:04)
[2018-05-01] MEDS: PANTOPRAZOLE 40 MG TABLET PO SCH (16:47)
[2018-05-01 17:27] LABS: Glucose,Whole Blood 156 mg/dL (75-99)
--- NOTE | 2018-05-01 17:51 | PN ---
PROGRESS NOTE DATE OF SERVICE: 05/01/18 She was seen on April2017. She is hemodynamically stable. She is less short of breath. She is doing better overall, but not back to baseline. PHYSICAL EXAMINATION: Vitals stable. She is afebrile. Chest with expiratory wheeze. Cardiovascular system is S1, S2. ABDOMEN: Soft. There is no pedal edema. LABS: Labs and medications were reviewed. IMPRESSION: At this time: Severe asthma with acute exacerbation. Continue IV steroids, bronchodilators, aerosolized steroids, possible oral steroids tomorrow if she is otherwise doing better. Increase her activity level. Her prognosis is fair. MMODL / IJN: [id number] /
[2018-05-01] MEDS: ACETAMINOPHEN TAB 325 MG TAB PO PRN (20:58)
[2018-05-01 21:18] LABS: Glucose,Whole Blood 140 mg/dL (75-99)
[2018-05-01] MEDS: ALPRAZolam 0.25 MG TAB PO PRN (22:14)
[2018-05-02] MEDS: SODIUM CHLORIDE 0.9% 1,000 ML IV SCH (05:08)
[2018-05-02] MEDS: IPRATROPIUM-ALBUTEROL 3 ML NEB INHALATION SCH ×3 (07:10→16:04)
[2018-05-02] MEDS: BUDESONIDE 0.5 MG/2 ML NEBU INHALATION SCH (07:10)
[2018-05-02 09:20] LABS: Basophils % (A) 0 %; Eosinophils % (A) 0 %; HCT 42.5 % (34.0-46.0); HGB 14.2 gm/dL (11.4-16.0); Lymphocytes % (A) 6 %; MCH 28.4 pg (25.0-35.0); MCHC 33.3 g/dL (31.0-37.0); Mean Platelet Volume 6.7; Monocytes # (A) 0.7 k/uL (0-1.0); Monocytes % (A) 4 %; Neutrophils # (A) 15.5 k/uL (1.3-7.7); Neutrophils % (A) 90 %; Platelet Count 256 k/uL (150-450); RBC 4.99 m/uL (3.80-5.40); RDW 13.6 % (11.5-15.5); WBC 17.4 k/uL (3.8-10.6)
[2018-05-02] MEDS ORDERED: predniSONE 20 MG TAB PO SCH (09:30)
[2018-05-02 09:40] LABS: ALT 59 U/L (9-52); AST 52 U/L (14-36); Albumin 3.6 g/dL (3.5-5.0); Alkaline Phosphatase 78 U/L (38-126); Anion Gap 13 mmol/L; Blood Urea Nitrogen 20 mg/dL (7-17); Calcium 9.4 mg/dL (8.4-10.2); Carbon Dioxide 25 mmol/L (22-30); Chloride 106 mmol/L (98-107); Glucose 120 mg/dL (74-99); Potassium 3.8 mmol/L (3.5-5.1); Sodium 144 mmol/L (137-145); Total Bilirubin 0.6 mg/dL (0.2-1.3); Total Protein 6.1 g/dL (6.3-8.2)
[2018-05-02] MEDS: INSULIN ASPART 100 UNIT/ML 1 ML 10 ML VIAL SQ SCH ×2 (09:41→11:53)
[2018-05-02] MEDS: PANTOPRAZOLE 40 MG TABLET PO SCH (09:42)
[2018-05-02] MEDS: FAMOTIDINE 20 MG TAB PO SCH (09:42)
[2018-05-02] MEDS: ENOXAPARIN 40 MG/0.4 ML SYRINGE SQ SCH (09:42)
[2018-05-02] MEDS: LEVOFLOXACIN 500 MG TAB PO SCH (09:42)
[2018-05-02] MEDS: methylPREDNISolone SOD SUCCI 125 MG/2 ML VIAL IV SCH (09:46)
[2018-05-02] MEDS: ALPRAZolam 0.25 MG TAB PO PRN (09:57)
--- NOTE | 2018-05-02 10:35 | P.PN ---
Subjective Progress Note Date: 05/02/18 HPI: This is a 47-year-old female patient being seen examined and evaluated today for consultation. This patient is well-known to our services. This patient came into the emergency room with complaints of progressive worsening shortness of breath that had been lasting over the last 2-3 days. She also complains of a cough. Patient has been on Xolair for approximately 5 years in our office and her chronic severe persistent asthma has been well controlled with that. She was not needing any other controller meds over the last 5 years. However in the last day or so she did use her son's albuterol inhaler without relief. Therefore she came into the emergency room. Her oxygen saturation was 80% with supplemental oxygen and then improved up to 95% post-nebulizer treatments. Her chest x-ray was reviewed and did show consistent findings of bronchitis. She had a WBC of 14.8. Patient was initiated on antibiotics and IV steroids and admitted to the hospital for further evaluation and workup. The patient is currently a smoker approximately 2 packs per week for 30 years. She is afebrile denies any further complaints. All labs and reports have been reviewed. Upon examination the patient was resting up in bed on 4 L of supplemental oxygen she denies home oxygen use. She continues to have the shortness of breath with exertion and activity as well as a cough. She has been unable to provide a sputum sample. Of note the patient's last Xolair shot was last Wednesday Interval History: 04/30/18-05/01/18- Please see Dr DARA Menchaca notes 05/02/18- patient is being seen examined and evaluated today on rounds. She is resting up in bed and is quite tearful today. Patient is crying and saying she wants to go home. She states she doesn't like having oxygen on and doesn't understand why she is requiring and at this point. She is on 4 L of supplemental oxygen via nasal cannula. It has continued to be weaned down as tolerated. She has improved however is not at her baseline. Her white count today has improved to 17.4. She was on IV steroids which we will switch over to oral prednisone per the patient's request. She continues to have shortness of breath cough and congestion. She is afebrile denies any further complaints. Objective - Vital Signs Vital signs: Vital Signs Temp 97.6 F 05/02/18 07:00 Pulse 74 05/02/18 07:24 Resp 18 05/02/18 07:00 BP 132/68 05/02/18 07:00 Pulse Ox 93 L 05/02/18 07:00 Intake & Output 05/01/18 05/02/18 05/02/18 18:59 06:59 18:59 Intake Total 240 1050 Balance 240 1050 Intake: Oral 240 1050 Other: # Voids 2 1 # Bowel Movements 0 - Exam GENERAL EXAM: Alert, active, comfortable in no apparent distress. HEAD: Normocephalic. EYES: Normal reaction of pupils, equal size. NOSE: Clear with pink turbinates. THROAT: No erythema or exudates. NECK: No masses, no JVD. CHEST: No chest wall deformity. LUNGS: Lungs continue to be coarse with rhonchi and expiratory wheeze. CVS: S1 and S2 normal with no audible mumurs, regular rhythm. ABDOMEN: No hepatosplenomegaly, normal bowel sounds, no guarding or rigidity. EXTREMITIES: No edema noted, pedal pulses palpable. CENTRAL NERVOUS SYSTEM: No focal deficits, tone is normal in all 4 extremities. - Labs CBC & Chem 7: 05/02/18 08:18 05/02/18 08:18 Labs: Abnormal Lab Results - Last 24 Hours (Table) 05/01/18 05/01/18 05/01/18 Range/Units 11:21 17:26 21:15 WBC (3.8-10.6) k/uL Neutrophils # (1.3-7.7) k/uL BUN (7-17) mg/dL Glucose (74-99) mg/dL POC Glucose (mg/dL) 129 H 156 H 140 H (75-99) mg/dL AST (14-36) U/L ALT (9-52) U/L Total Protein (6.3-8.2) g/dL 05/02/18 05/02/18 Range/Units 08:18 08:18 WBC 17.4 H (3.8-10.6) k/uL Neutrophils # 15.5 H (1.3-7.7) k/uL BUN 20 H (7-17) mg/dL Glucose 120 H (74-99) mg/dL POC Glucose (mg/dL) (75-99) mg/dL AST 52 H (14-36) U/L ALT 59 H (9-52) U/L Total Protein 6.1 L (6.3-8.2) g/dL Microbiology - Last 24 Hours (Table) 04/29/18 15:45 Gram Stain - Final Sputum Sputum Culture - Final 04/28/18 13:40 Blood Culture - Preliminary Blood No Growth after 72 hours Assessment and Plan Assessment: Assessment Acute exacerbation of severe chronic persistent asthma Acute exacerbation of COPD Acute tracheobronchitis Nicotine dependence Plan Medications have been reviewed and will be continued as ordered. Continue with antibiotics IV steroids have been switched to oral Continue with pulmonary hygiene, coughing and deep breathing exercises, and supportive care. Supplemental oxygen to maintain oxygen saturations of 92% or better. Continue nebulizer treatments in the form of DuoNeb and budesonide. incentive spirometer and check peak flows GI and DVT prophylaxis. sputum culture-pending Continue Xolair outpatient Increase activity as tolerated We will continue to monitor labs/results and adjust treatment as necessary. Further recommendations pending. I performed an examination of the patient and discussed their management with the nurse practitioner. I have reviewed the nurse practitioner's note and agree with the documented findings and plan of care.
[2018-05-02 11:49] LABS: Glucose,Whole Blood 117 mg/dL (75-99)
[2018-05-02 15:01] VITALS: BP 125/70; RESP 16; TEMP 98
--- NOTE | 2018-05-02 16:00 | P.DS ---
Providers Date of admission: 04/28/18 14:31 Attending physician: Sreekanth Ledbetter Consults: 04/28/18 14:30 Consult Physician Stat Consulting Provider: Winston Elliott Consult Reason/Comments: Short of breath Do you want consulting provider notified?: Yes Primary care physician: Sreekanth Ledbetter [facility] Course: Diagnosis at discharge 1. Acute COPD exacerbation: Patient will be placed discharged with Prednisone taper per pulmonary service. Patient will also require 4L home O2 2. Acute tracheobronchitis: No pneumonia on chest x-ray. Continue with the Levaquin. Check sputum culture. 3. History of mild intermittent asthma 4. Nicotine dependence: Patient reports quitting smoking 7 days ago. Discussed smoking cessation greater than 3 minutes 5. Hyperglycemia likely related to steroids. Continue sliding scale coverage 6. Leukocytosis: Likely related to her bronchitis and steroids Hospital Course This is a 47-year-old female with a known past medical history of asthma, nicotine dependence, GERD, hyperlipidemia and migraines. Patient presents to the emergency room with a 2 day complaint of worsening shortness of breath and cough. Patient reports using her grandson's albuterol nebulizer treatment and also needing her albuterol inhaler. Symptoms not improved. And came into the emergency room for further evaluation and treatment. Pulse ox was 80% on oxygen. Per ER report after updraft went up to 95%. Chest x-ray showed a possible bronchitis. White count elevated at 14.8. Troponins were negative 2 and d-dimer was normal. She was started on Levaquin and IV Solu-Medrol and bronchodilators for an acute COPD exacerbation and bronchitis. Patient does report the cough being productive. Pulmonary service has been consulted. Patient reports using Xolair shots over the past 5 years to help control her symptoms. This is her first hospitalization. She was recently on oral prednisone and Benadryl for heat rash per patient. Patient denies any fever chills or sweats. Denies any nausea or vomiting. Denies any bowel movement changes or urinary symptoms. She is reporting extreme shortness of breath with any activity. On 04/30/2018 patient is feeling better she has less shortness of breath and cough she is still having significant wheezing there is no headache or sore throat no chest pain no palpitation no nausea or vomiting no abdominal pain no diarrhea or constipation and no urinary symptoms. Patient is maintained on IV antibiotic and IV steroids and has shown some improvement. On 05/01/2018 patient is alert and oriented, still complaining of cough and shortness of breath, still has audible wheezing, otherwise there is no complaints, there is no fever or chills no nausea or vomiting no abdominal pain no diarrhea and no urinary symptoms. She is complaining of occasional acid reflux symptoms. On 05/02/2018 patient is alert and oriented, tearful and saying she would like to go home. Patient understands that she will have to go home on 4L NC. Patient also will be discharged on Prednisone taper and antibiotics per Pulmonary Patient Condition at Discharge: Stable Plan - Discharge Summary Discharge Rx Participant: No New Discharge Prescriptions: No Action predniSONE See Taper PO DAILY diphenhydrAMINE HCL [Benadryl] 25 mg PO Q6H PRN PRN Reason: Allergy Symptoms Albuterol Nebulized [Ventolin Nebulized] 2.5 mg INHALATION RT-Q6H PRN PRN Reason: Shortness Of Breath Albuterol Inhaler [Ventolin Hfa Inhaler] 2 puff INHALATION RT-Q6H PRN PRN Reason: Shortness Of Breath Discharge Medication List Albuterol Inhaler [Ventolin Hfa Inhaler] 2 puff INHALATION RT-Q6H PRN 04/28/18 [ History] Albuterol Nebulized [Ventolin Nebulized] 2.5 mg INHALATION RT-Q6H PRN 04/28/18 [ History] diphenhydrAMINE HCL [Benadryl] 25 mg PO Q6H PRN 04/28/18 [History] predniSONE See Taper PO DAILY 04/28/18 [History] Follow up Appointment(s)/Referral(s): Sreekanth Ledbetter MD [Primary Care Provider] - 1-2 days
[2018-05-02 16:19] VITALS: PULSE 84
== END 2018-05-02 17:49 | disposition home or self-care (01) | DRG 191 ==
LOC: EC 12:43 → 4MS4W 14:31
PROVIDERS: ADMIT Internal Medicine; ATTEND Internal Medicine
DX: J44.0 Chronic obstructive pulmonary disease with (acute) lower respiratory infection (principal); J45.51 Severe persistent asthma with (acute) exacerbation; J44.1 Chronic obstructive pulmonary disease with (acute) exacerbation; J20.9 Acute bronchitis, unspecified; E03.9 Hypothyroidism, unspecified; E78.5 Hyperlipidemia, unspecified; F17.200 Nicotine dependence, unspecified, uncomplicated; K21.9 Gastro-esophageal reflux disease without esophagitis; L74.0 Miliaria rubra; Z79.52 Long term (current) use of systemic steroids; Z79.899 Other long term (current) drug therapy; Z80.1 Family history of malignant neoplasm of trachea, bronchus and lung; Z82.49 Family history of ischemic heart disease and other diseases of the circulatory system; Z90.710 Acquired absence of both cervix and uterus; Z71.6 Tobacco abuse counseling; T38.0X5A Adverse effect of glucocorticoids and synthetic analogues, initial encounter; R73.9 Hyperglycemia, unspecified; D72.828 Other elevated white blood cell count
CPT/HCPCS: 36415; 71046; 80053; 82550; 82553; 83605; 83880; 84484; 85025; 85379; 85610; 85730; 87040; 87070; 87205; 93005; 94640; 94760; 96361; 96374; 99285

== ENCOUNTER 2019-02-18 18:37 | Emergency (ER) | payer OTHER ==
[2019-02-18 18:47] VITALS: BP 111/71; PULSE 97; RESP 18; TEMP 98
[2019-02-18] MEDS ORDERED: KETOROLAC 30 MG/ML 1 ML VIAL IM STA (18:56)
--- NOTE | 2019-02-18 18:59 | ED ---
Extremity Problem HPI - General Chief complaint: Extremity Problem,Nontraumatic Stated complaint: Left Thumb Pain Time Seen by Provider: 02/18/19 18:50 Source: patient Mode of arrival: ambulatory Limitations: no limitations - History of Present Illness Initial comments: 48-year-old female patient presents to the emergency department today for evaluation of left thumb pain and swelling. Patient says she has had pain to the last 2 months. Denies any injury with onset of pain. States that she does occasionally hear clicking noise in the joint. States that the pain worsens at night. States that shows have pain radiating into the wrist at times. States that she does have increased pain with full flexion and extension of the thumb. Denies any numbness or tingling. Denies any previous injury. States she did see her primary care physician and has been taking Tylenol and Motrin without relief of symptoms. Denies fevers or chills with this. Denies any erythema to the digit. Denies any other physical symptoms or concerns. - Related Data Home Medications Medication Instructions Recorded Confirmed Albuterol Inhaler [Ventolin Hfa 2 puff INHALATION RT-Q6H PRN 04/28/18 04/28/18 Inhaler] diphenhydrAMINE HCL [Benadryl] 25 mg PO Q6H PRN 04/28/18 04/28/18 Previous Rx's Medication Instructions Recorded Ipratropium-Albuterol Nebulize 3 ml INHALATION RT-QID ampul.neb 05/02/18 [Duoneb 0.5 mg-3 mg/3 ml Soln] Levofloxacin [Levaquin] 500 mg PO Q24H tab 05/02/18 predniSONE 60 mg PO DAILY tab 05/02/18 predniSONE 50 mg PO DAILY #5 tablet 02/18/19 Allergies Allergy/AdvReac Type Severity Reaction Status Date / Time No Known Allergies Allergy Verified 02/18/19 18:47 Review of Systems ROS Statement: Those systems with pertinent positive or pertinent negative responses have been documented in the HPI. ROS Other: All systems not noted in ROS Statement are negative. Past Medical History Past Medical History: Asthma, GERD/Reflux, Hyperlipidemia Additional Past Medical History / Comment(s): migraines, hypothyroidism History of Any Multi-Drug Resistant Organisms: None Reported Past Surgical History: Hysterectomy Additional Past Surgical History / Comment(s): partial hysterectomy ,wisdom, bunionectomy,d&c Past Anesthesia/Blood Transfusion Reactions: No Reported Reaction Additional Past Anesthesia/Blood Transfusion Reaction / Comment(s): lives with sister. is independant. 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 has nebulizer. Past Psychological History: No Psychological Hx Reported Smoking Status: Current some day smoker Past Alcohol Use History: None Reported Past Drug Use History: Marijuana - Past Family History Mother Family Medical History: Coronary Artery Disease (CAD) Additional Family Medical History / Comment(s): triple vessel cabg Father Family Medical History: Cancer Additional Family Medical History / Comment(s): smoker, etoh, lung cancer General Exam Limitations: no limitations General appearance: alert, in no apparent distress, other (Physical well- developed, well-nourished adult female patient in no acute distress. Vital sign s upon presentation are temperature 98.0F, pulse 97, respirations 18, blood pressure 111/71, pulse ox 98% on room air.) Respiratory exam: Present: normal lung sounds bilaterally. Absent: respiratory distress, wheezes, rales, rhonchi, stridor Cardiovascular Exam: Present: regular rate, normal rhythm, normal heart sounds. Absent: systolic murmur, diastolic murmur, rubs, gallop, clicks Extremities exam: Present: normal inspection, full ROM, normal capillary refill, other (Patient skin to thumb is pink, warm, dry. Cap refills less than 3 seconds. Radial pulses 2+ and equal bilaterally. Negative Nevaeh test.). Absent: tenderness, pedal edema, joint swelling, calf tenderness Neurological exam: Present: alert, oriented X3, CN II-XII intact Psychiatric exam: Present: normal affect, normal mood Skin exam: Present: warm, dry, intact, normal color. Absent: rash Course Vital Signs 02/18/19 18:44 Temperature 98.0 F Pulse Rate 97 Respiratory 18 Rate Blood Pressure 111/71 O2 Sat by Pulse 98 Oximetry Medical Decision Making - Medical Decision Making 48-year-old female patient presents to the emergency department today for evaluation of left thumb pain 2 months. Physical examination reveals very mild soft tissue swelling surrounding the left thumb. No erythema. No finger tenderness. Negative Nevaeh test. Little concern for tenosynovitis. She will be put on steroids for inflammation. She is instructed to follow-up through primary care physician for recheck in 1-2 days. Return parameters were discussed in detail. She verbalizes understanding and agrees with this plan. - Radiology Data Radiology results: report reviewed, image reviewed 3 views of the right thumb are obtained. Report was reviewed in its entirety. Impression by Dr. Medrano shows no acute osseous abdomen about it. Disposition Clinical Impression: Osteoarthritis of left thumb Disposition: HOME SELF-CARE Condition: Good Instructions (If sedation given, give patient instructions): Osteoarthritis (ED) Additional Instructions: Complete steroid prescription in full. Follow-up through primary care physician for referral to orthopedics. Return to the emergency department immediately for any new, worsening, or concerning symptoms. Prescriptions: predniSONE 50 mg PO DAILY #5 tablet Is patient prescribed a controlled substance at d/c from ED?: No Referrals: Sreekanth Ledbetter MD [Primary Care Provider] - 1-2 days Chandler Daly DO [Medical Doctor] - 1-2 days Time of Disposition: 20:45
--- NOTE | 2019-02-18 19:53 | XR ---
EXAMINATION TYPE: XR finger LT DATE OF EXAM: 02/18/2019 COMPARISON: None HISTORY: Pain TECHNIQUE: Three-view right thumb FINDINGS: No acute fractures are evident. Mild joint narrowing is present. Soft tissues are normal. IMPRESSION: 1. No acute osseous abnormality.
[2019-02-18] MEDS ORDERED: predniSONE 50 MG TAB PO STA (20:42)
== END 2019-02-18 20:55 | disposition home or self-care (01) ==
LOC: EC 18:37
DX: M18.12 Unilateral primary osteoarthritis of first carpometacarpal joint, left hand (principal); J45.909 Unspecified asthma, uncomplicated; F17.200 Nicotine dependence, unspecified, uncomplicated
CPT/HCPCS: 73140; 99283; 96372; J1885; J7512

== ENCOUNTER → 2020-08-13 | Outpatient (CLI) | payer OTHER ==
--- NOTE | 2020-08-14 10:47 | MM ---
Reason for exam: screening (asymptomatic). Last mammogram was performed 1 year and 6 months ago. History: Patient is postmenopausal. Family history of breast cancer in grandmother. Took estrogen for 7 years. Physical Findings: A clinical breast exam by your physician is recommended on an annual basis and results should be correlated with mammographic findings. MG Screening Mammo w CAD Bilateral CC and MLO view(s) were taken. Prior study comparison: February 02, 2019, bilateral MG screening mammo w CAD. October 14, 2017, bilateral MG screening mammo w CAD. There are scattered fibroglandular densities. There are benign appearing round calcifications in the right breast. There is no discrete abnormality. ASSESSMENT: Benign, BI-RAD 2 RECOMMENDATION: Routine screening mammogram of both breasts in 1 year.
== END | disposition home or self-care (01) ==
LOC: RADMAMWWP 12:00
PROVIDERS: ATTEND Internal Medicine
DX: Z12.31 Encounter for screening mammogram for malignant neoplasm of breast (principal)
CPT/HCPCS: 77067

== ENCOUNTER → 2021-07-17 | Outpatient (CLI) | payer OTHER ==
--- NOTE | 2021-07-17 16:19 | US ---
EXAMINATION TYPE: US venous doppler duplex LE LT DATE OF EXAM: 07/17/2021 4:00 PM COMPARISON: NONE CLINICAL HISTORY: R22.42 Swelling Left Lower Limb. left knee pain, left leg edema SIDE PERFORMED: left TECHNIQUE: The lower extremity deep venous system is examined utilizing real time linear array sonog poncho with graded compression, doppler sonography and color-flow sonography. VESSELS IMAGED: Common Femoral Vein Deep Femoral Vein Greater Saphenous Vein * Femoral Vein Popliteal Vein Small Saphenous Vein * Proximal Calf Veins (* superficial vessels) Left Leg: no evidence of DVT. Rouleaux flow left popliteal vein Grayscale, color doppler, spectral doppler imaging performed of the deep veins of the left lower extr emity. There is normal flow and compressibility. IMPRESSION: Normal ultrasound evidence for acute DVT in the left lower extremity.
== END | disposition home or self-care (01) ==
LOC: RADUSWWP 15:38
PROVIDERS: ATTEND Internal Medicine
DX: R22.42 Localized swelling, mass and lump, left lower limb (principal); M25.562 Pain in left knee

== ENCOUNTER → 2021-07-17 | Outpatient (CLI) | payer OTHER ==
--- NOTE | 2021-07-17 16:29 | XR ---
Left knee HISTORY: Left knee pain and swelling 3 views of the left knee Bone mineralization, joint spaces and alignment are maintained. No fracture or dislocation. Suprapate llar increased attenuation is present. IMPRESSION: Joint effusion.
== END | disposition home or self-care (01) ==
LOC: RADXRMAIN 16:04
PROVIDERS: ATTEND Internal Medicine
DX: M25.462 Effusion, left knee (principal)

== ENCOUNTER → 2022-06-12 | Outpatient (CLI) | payer OTHER ==
--- NOTE | 2022-06-12 13:43 | US ---
EXAMINATION TYPE: US abdomen complete DATE OF EXAM: 06/12/2022 COMPARISON: NONE CLINICAL HISTORY: R10.84. RUQ pain with n/v x approx a month TECHNIQUE: Multiple sonographic images of the abdomen are obtained. FINDINGS: EXAM MEASUREMENTS: Liver Length: 14.8 cm Gallbladder Wall: 0.45 cm CBD: 0.24 cm Spleen: 11.4 cm Right Kidney: 9.9 x 5.2 x 4.4 cm Left Kidney: 10.1 x 4.5 x 5.0 cm SOFT BOARDER NOTES: Pancreas: wnl Liver: Heterogeneous, increased attenuation Gallbladder: Multiple gallstones visualized, thickened gallbladder wall Evidence for sonographic Cody's sign: No CBD: wnl Spleen: wnl Right Kidney: wnl Left Kidney: wnl Upper IVC: wnl Abd Aorta: wnl IMPRESSION: Cholelithiasis. 2. Mild fatty infiltration to the liver.
== END | disposition home or self-care (01) ==
LOC: RADUSWWP 11:47
PROVIDERS: ATTEND Internal Medicine
DX: K80.20 Calculus of gallbladder without cholecystitis without obstruction (principal); K76.0 Fatty (change of) liver, not elsewhere classified
CPT/HCPCS: 76700

== ENCOUNTER → 2022-09-10 | Outpatient (CLI) | payer OTHER ==
--- NOTE | 2022-09-10 12:06 | US ---
EXAMINATION TYPE: US abdomen complete DATE OF EXAM: 09/10/2022 COMPARISON: NONE CLINICAL HISTORY: 51-year-old female R10.84 GENERALIZED ABDOMINAL PAIN. TECHNIQUE: Multiple sonographic images of the abdomen are obtained. FINDINGS: EXAM MEASUREMENTS: Liver Length: 15.1 cm Gallbladder Wall: 0.3 cm CBD: 0.4 cm Spleen: 11.2 cm Right Kidney: 8.8 x 4.6 x 4.6 cm Left Kidney: 9.7 x 4.9 x 5.0 cm Labor Relations Worker notes:Difficult and limited study due to patient body habitus Pancreas: Limited visualization of the pancreatic body and tail due to shadowing from bowel gas. Liver: Relatively homogeneous appearance. No focal lesion. Gallbladder: Numerous small layering gallstones. Gallbladder wall is borderline in thickness at 3 mm . No surrounding fluid or hydropic change. Evidence for sonographic Cody's sign: no CBD: wnl Spleen: wnl Right Kidney: wnl Left Kidney: wnl Upper IVC: wnl Abd Aorta: wnl IMPRESSION: 1. Technically limited exam due to patient body habitus. 2. Small layering gallstones. No ancillary findings of acute cholecystitis. No biliary ductal dilatat ion.
== END | disposition home or self-care (01) ==
LOC: RADUSWWP 08:05
PROVIDERS: ATTEND Internal Medicine
DX: R10.84 Generalized abdominal pain (principal)
CPT/HCPCS: 76700

== ENCOUNTER → 2022-11-04 | Outpatient (CLI) | payer OTHER ==
[2022-11-04 18:10] LABS: Basophils # (A) 0.06 X 10*3/uL (0.00-0.10); Basophils % (A) 0.9 %; Eosinophils # (A) 0.18 X 10*3/uL (0.04-0.35); Eosinophils % (A) 2.6 %; HGB 14.1 g/dL (12.0-15.0); Immature Grans, Automated 0.3 %; Lymphocytes # (A) 2.49 X 10*3/uL (0.90-5.00); Lymphocytes % (A) 36.4 %; MCH 27.2 pg (27.0-32.0); MCV 84.8 fL (80.0-97.0); Mean Platelet Volume 9.2 fL (9.5-12.2); Monocytes # (A) 0.41 X 10*3/uL (0.20-1.00); NRBC Per 100 WBC 0 /100 WBCS (0.0-0.0); Neutrophils # (A) 3.69 X 10*3/uL (1.80-7.70); Neutrophils % (A) 53.8 %; Platelet Count 277 X 10*3/uL (140-440); RBC 5.19 X 10*6/uL (4.10-5.20); RDW 13.5 % (11.5-14.5); WBC 6.85 X 10*3/uL (4.50-10.00)
[2022-11-04 18:36] LABS: Anion Gap 10.2 mmol/L (10.00-18.00); Carbon Dioxide 27.8 mmol/L (20.0-27.5); Potassium 4.8 mmol/L (3.5-5.5)
== END | disposition home or self-care (01) ==
LOC: LABPAT 14:09
PROVIDERS: ATTEND Orthopaedic Surgery Hand Surgery
DX: Z01.812 Encounter for preprocedural laboratory examination (principal); M65.311 Trigger thumb, right thumb
CPT/HCPCS: 80051; 85025

== ENCOUNTER 2022-11-18 08:36 | Day surgery (SDC) | payer OTHER ==
[2022-11-12 16:08] VITALS: BMI 31.3
--- NOTE | 2022-11-17 08:51 | P.HPOR ---
History of Present Illness H&P Date: 11/17/22 Chief Complaint: Right thumb trigger finger Subjective: This is a 51 year old female that presents today for initial evaluation regarding a 4 month history of right thumb pain and swelling with associated popping clicking and catching. She denies any injury or inciting event. She denies any numbness or tingling. She has tried wearing thumb braces at nighttime, which have given her some minor relief, but overall she is still having pain and swelling in the right thumb region. She recently had a heart catheterization in the right wrist one week ago. She states she had a left thumb A1 alcides release in the past by an outside surgeon and responded well to surgery. Physical Examination: RUE: AIN/PIN/Radial/Ulnar/Median motor intact. Radial/Ulnar/Median SILT. 2+/4 Radial/Ulnar pulses palpated. 5/5 APB, 5/5 FDI. Negative Finkelsteins, negative CMC grind, negative Durkan's compression. Tenderness to palpation over the right thumb A1 alcides with locking, catching and clicking with passive and active thumb IP joint flexion. Impression: 1.) Right thumb trigger finger. Plan: Diagnosis and treatment options were discussed with the patient. She states she does not want any steroid injection and she responded well to surgery for her contralateral side and would like to pursue right thumb A1 alcides release on this involved side. Risks and benefits of surgery including bleeding, infection, damage to surrounding tissue, need for further surgery, residual numbness were discussed and the patient wished to go forward with surgery. The patient is agreeable with this plan. She requests absorbable sutures be used for skin closure -Alejandro Head DO Orthopedic Hand/Upper Extremity Surgeon Past Medical History Past Medical History: Asthma, COPD, GERD/Reflux, Hyperlipidemia, Thyroid Disorder Additional Past Medical History / Comment(s): migraines, hypothyroidism History of Any Multi-Drug Resistant Organisms: None Reported Past Surgical History: Hysterectomy Additional Past Surgical History / Comment(s): partial hysterectomy ,wisdom, bunionectomy,d&c Past Anesthesia/Blood Transfusion Reactions: No Reported Reaction Additional Past Anesthesia/Blood Transfusion Reaction / Comment(s): lives with sister. is independant. 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 has nebulizer. Smoking Status: Former smoker - Past Family History Mother Family Medical History: Coronary Artery Disease (CAD) Additional Family Medical History / Comment(s): triple vessel cabg Father Family Medical History: Cancer Additional Family Medical History / Comment(s): smoker, etoh, lung cancer Medications and Allergies Home Medications Medication Instructions Recorded Confirmed Type Aspirin 81 mg PO DAILY 11/12/22 11/12/22 History Cyclobenzaprine [Flexeril] 10 mg PO HS 11/12/22 11/12/22 History Ergocalciferol [Vitamin D2 (1250 1,250 mcg PO MO 11/12/22 11/12/22 History Mcg = [id number] Iu)] Ezetimibe [Zetia] 10 mg PO HS 11/12/22 11/12/22 History Famotidine [Pepcid] 20 mg PO HS 11/12/22 11/12/22 History Ibuprofen [Motrin Ib] 800 mg PO DAILY PRN 11/12/22 11/12/22 History Isosorbide Mononitrate [Isosorbide 30 mg PO DAILY 11/12/22 11/12/22 History Mononitrate ER] Levothyroxine Sodium 150 mcg PO DAILY 11/12/22 11/12/22 History Loratadine 10 mg PO HS 11/12/22 11/12/22 History Montelukast [Singulair] 10 mg PO HS 11/12/22 11/12/22 History Omeprazole 40 mg PO HS 11/12/22 11/12/22 History Ondansetron [Zuplenz] 4 mg PO DIRECTED 11/12/22 11/12/22 History Pravastatin Sodium [Pravachol] 40 mg PO HS 11/12/22 11/12/22 History Sucralfate [Carafate] 1 gm PO QID PRN 11/12/22 11/12/22 History ALPRAZolam [Xanax] 0.25 mg PO Q8HR PRN 11/13/22 11/13/22 History Omalizumab [Xolair] 75 mg SQ Q14D 11/13/22 11/13/22 History traMADol HCL 50 mg PO Q8H PRN 11/13/22 11/13/22 History Allergies Allergy/AdvReac Type Severity Reaction Status Date / Time No Known Allergies Allergy Verified 11/12/22 15:40 Physical Examination Osteopathic Statement: *. No significant issues noted on an osteopathic structural exam other than those noted in the History and Physical/Consult.
[~2022-11-18 08:36] MED LIST: HYDROmorphone 0.5 MG/0.5 ML SYRINGE IVP PRN; LACTATED RINGERS 1,000 ML IV SCH; LIDOCAINE 1% (10MG/ML) FOR IV START INTRADERMA PRN; ONDANSETRON 4 MG/2 ML VIAL IVP PRN; Pre Op ABX Message 1 EACH MISC MISCELLANE ONE
[2022-11-18] MEDS ORDERED: DEXAMETHASONE SOD PHOSPHATE 4 MG/ML 1 ML VIAL IVP ONE (09:01)
[2022-11-18 09:16] VITALS: RESP 16; TEMP 96.9
[2022-11-18] MEDS ORDERED: PROPOFOL 10 MG/ML 20 ML VIAL IV ONE (10:09)
[2022-11-18] MEDS ORDERED: LIDOCAINE 2% INJ 20 MG/ML (2 ML VIAL) ONE (10:09)
[2022-11-18] MEDS ORDERED: fentaNYL (PF) 50 MCG/ML 2 ML AMP ONE (10:09)
[2022-11-18] MEDS ORDERED: KETAMINE 10 MG/ML 20 ML VIAL ONE (10:09)
[2022-11-18] MEDS ORDERED: MIDAZOLAM 2 MG/2 ML VIAL ONE (10:09)
[2022-11-18] MEDS ORDERED: LIDOCAINE 1% INJ 10MG/ML (20 ML MDV) SQ ONE ×2 (10:13)
[2022-11-18] MEDS ORDERED: BUPIVACAINE (PF) 0.5% 30 ML VIAL SQ ONE ×2 (10:13)
--- NOTE | 2022-11-18 10:40 | P.OP ---
Date of Procedure: 11/18/22 Preoperative Diagnosis: 1.) Right thumb trigger finger Postoperative Diagnosis: 1.) Right thumb trigger finger Procedure(s) Performed: Right thumb A1 alcides release Anesthesia: MAC Surgeon: Alejandro Head Door Machine Operator #1: Russell Chappell Estimated Blood Loss (ml): 0 Pathology: none sent Condition: stable Disposition: PACU Description of Procedure: This is a 51 year old female who presents today for a right thumb trigger finger A1 alcides release after having failed conservative treatment. Risks and benefits of surgery were discussed with the patient including bleeding, damage to surrounding tissue, infection, need for further surgery as well as risks of anes thesia including pulmonary embolism and even and the patient wished to proceed with surgical intervention. The patient was seen in the pre-operative area by myself. Consent and H&P were completed and updated. The correct extremity was marked in the pre-operative area by myself and all other questions were answered. Operative Narrative: The patient was brought to the operating room by the department of anesthesia. They remained on the portable stretcher and a rolling hand table was brought to the side of the operative extremity. Pre-operative time out was performed indicating the correct patient, procedure and laterality. All in the room agreed. Pre-operative antibiotics were given prior to skin incision. The patient was then drifted off to sleep by the department of anesthesia. MAC anesthesia was utilized and a 50:50 mixture of 1% Lidocaine and 0.5% bupivacaine was injected into the subcutaneous tissues of the palmar skin, 3 ccs total. A nonsterile tourniquet was then applied to the operative extremity and the operative upper extremity was then prepped and draped in normal sterile fashion. The operative extremity was the exsanguinated with an esmarch bandage and the tourniquet was inflated to 250mmHg. Transverse incision was made at the base of the thumb overlying the A1 alcides. Blunt dissection was taken down to the level of the A1 alcides. Ragnell retractors were placed both radially and ulnarly to protect neurovascular bundles. Littler tenotomy scissors were then used to release the A1 alcides from proximal to distal under direct visualization. Proximal fascial attachments were released. The tendon was then taken through range of motion and no locking or catching was appreciated. The wound was then closed with interrupted 4-0 monocryl sutures followed by exofin skin glue. Sterile dressing consisting of 4x4s, webril, and an woody wrap was applied. Tourniquet was let down and the hand was immediately well perfused. The patient was then woken by the department of anesthesia and transferred to PACU in stable condition. Russell VIRAMONTES was present to assist in retraction and protection of neurovascular structures. Alejandro Head D.O. Orthopedic Hand/Upper Extremity Surgeon
[2022-11-18 11:30] VITALS: BP 112/72; PULSE 72
== END 2022-11-18 11:38 | disposition home or self-care (01) ==
LOC: OR 08:36
PROVIDERS: ATTEND Orthopaedic Surgery Hand Surgery
DX: M65.311 Trigger thumb, right thumb (principal); J44.9 Chronic obstructive pulmonary disease, unspecified; K21.9 Gastro-esophageal reflux disease without esophagitis; E78.5 Hyperlipidemia, unspecified; E07.9 Disorder of thyroid, unspecified; Z90.710 Acquired absence of both cervix and uterus; Z87.891 Personal history of nicotine dependence; Z82.49 Family history of ischemic heart disease and other diseases of the circulatory system; Z80.1 Family history of malignant neoplasm of trachea, bronchus and lung; Z79.82 Long term (current) use of aspirin; Z79.899 Other long term (current) drug therapy
CPT/HCPCS: 26055; J2250; J1100; J2405; J2001 ×2; J3010; J2704

== ENCOUNTER 2022-12-04 07:17 | Day surgery (SDC) | payer OTHER ==
[2022-12-01 11:47] VITALS: BMI 33.5
[~2022-12-04 07:17] MED LIST changes: +ACETAMINOPHEN TAB 500 MG TAB PO PRN; +HEPARIN SODIUM,PORCINE/PF 5,000 UNIT/0.5 ML SYRINGE SQ PRN; -HYDROmorphone 0.5 MG/0.5 ML SYRINGE IVP PRN; -LACTATED RINGERS 1,000 ML IV SCH; -LIDOCAINE 1% (10MG/ML) FOR IV START INTRADERMA PRN; -ONDANSETRON 4 MG/2 ML VIAL IVP PRN; -Pre Op ABX Message 1 EACH MISC MISCELLANE ONE
[2022-12-04] MEDS ORDERED: DEXAMETHASONE SOD PHOSPHATE 4 MG/ML 1 ML VIAL IV ONE (07:32)
[2022-12-04] MEDS ORDERED: LACTATED RINGERS 1,000 ML IV SCH (07:32)
[2022-12-04] MEDS ORDERED: MIDAZOLAM 2 MG/2 ML VIAL IV PRN (07:32)
[2022-12-04] MEDS ORDERED: SCOPOLAMINE 1 MG/72 HR PATCH TRANSDERM ONE (07:32)
[2022-12-04] MEDS ORDERED: ONDANSETRON 4 MG/2 ML VIAL IVP ONE (07:32)
[2022-12-04] MEDS ORDERED: LACTATED RINGERS 1,000 ML IV ONE ×2 (07:36→10:23)
[2022-12-04] MEDS ORDERED: KETOROLAC 15 MG/ML 1 ML VIAL ONE (09:17)
[2022-12-04] MEDS ORDERED: PROPOFOL 10 MG/ML 20 ML VIAL IV ONE (09:17)
[2022-12-04] MEDS ORDERED: ROCURONIUM 10 MG/ML (5 ML VIAL) IV ONE (09:17)
[2022-12-04] MEDS ORDERED: GLYCOPYRROLATE 0.2 MG/ML 2 ML VIAL ONE (09:17)
[2022-12-04] MEDS ORDERED: MIDAZOLAM 2 MG/2 ML VIAL ONE (09:17)
[2022-12-04] MEDS ORDERED: HYDROmorphone (PF) 1 MG/ML ONE (09:17)
[2022-12-04] MEDS ORDERED: NEOSTIGMINE 1 MG/ML 10 ML VIAL ONE (09:17)
[2022-12-04] MEDS ORDERED: LIDOCAINE 2% INJ 20 MG/ML (2 ML VIAL) ONE (09:17)
[2022-12-04] MEDS ORDERED: fentaNYL (PF) 50 MCG/ML 2 ML AMP ONE (09:17)
[2022-12-04] MEDS ORDERED: SUCCINYLCHOLINE CHLORIDE 200 MG/10 ML VIAL IV ONE (09:17)
[2022-12-04] MEDS ORDERED: BUPIVACAIN-EPI 0.25%-1:200,000 30 ML VIAL SQ ONE (09:20)
--- NOTE | 2022-12-04 10:41 | P.OP ---
Date of Procedure: 12/04/22 Procedure(s) Performed: PREOPERATIVE DIAGNOSIS: Chronic cholecystitis POSTOPERATIVE DIAGNOSIS: Same PROCEDURE: Laparoscopic cholecystectomy SURGEON: Lew EBL: Minimal see anesthesia record ANESTHESIA: Gen. COMPLICATIONS: None OPERATIVE PROCEDURE: The patient was brought and placed on the operating room table in the supine position. The patient was placed under general anesthesia at that time. The abdomen was prepped and draped in the usual sterile fashion. A small vertical infraumbilical incision was made. The fascia was grasped with the Kizzy forceps. The fascia was retracted anteriorly. The Veress needle was advanced into the peritoneal cavity. The saline drop test was normal. Insufflation took place up to 15 mmHg. A 5 mm optical trocar was advanced and the peritoneal cavity. 2 additional 5 mm trochars were placed in the right upper quadrant under direct visualization. A 12 mm trocar was advanced into the epigastric incision site. The gallbladder had evidence of significant chronic inflammatory changes. The gallbladder was retracted superiorly and laterally. The peritoneum overlying the infundibulum was bluntly dissected. The patient's cystic duct was visualized. The junction between the cystic duct common and hepatic duct was identified. The critical view of safety was achieved after blunt dissection. The cystic duct was edematous and slightly larger than normal. I used a 2-0 Ethibond stitch to secure the cystic duct on the patient's side as well as 12 mm clips. The cystic duct was then divided on the other side of these clips. A bile tinged purulent fluid was noted to emanate from the specimen side of the cystic duct at that time. The cystic artery was identified and clipped as well. A small vessel was seen along the gallbladder fossa and clipped as well. The gallbladder was then removed from the liver bed using electrocautery. The gallbladder was then removed from the epigastric trocar site with an Endo Catch bag. The gallbladder fossa was irrigated with saline. There was no evidence of any bleeding or biliary drainage seen. The fascia at the 12 millimeter site was closed using a Kyle-Natasha 0 Vicryl stitch. The trochars were then removed. The skin at all 4 sites was closed using a 4-0 Monocryl stitch. Skin glue was utilized on the incision sites. At the end of this procedure the sponge and needle counts were correct. DISPOSITION: Stable to the recovery room
[2022-12-04 10:42] VITALS: TEMP 97
[2022-12-04] MEDS: HYDROmorphone 0.5 MG/0.5 ML SYRINGE IVP PRN ×2 (10:50→11:14)
[2022-12-04 11:43] VITALS: RESP 18
[2022-12-04] MEDS ORDERED: ACETAMINOPHEN TAB 325 MG TAB PO SCH (12:00)
[2022-12-04 12:22] VITALS: BP 148/84; PULSE 51
[2022-12-04] MEDS ORDERED: IBUPROFEN 600 MG TAB PO SCH (13:45)
== END 2022-12-04 12:30 | disposition home or self-care (01) ==
LOC: OR 07:17
PROVIDERS: ATTEND Surgery
DX: K80.10 Calculus of gallbladder with chronic cholecystitis without obstruction (principal); K21.9 Gastro-esophageal reflux disease without esophagitis; J45.909 Unspecified asthma, uncomplicated; E03.9 Hypothyroidism, unspecified; F17.200 Nicotine dependence, unspecified, uncomplicated; Z90.710 Acquired absence of both cervix and uterus
CPT/HCPCS: 88304; 47562; J2250; J0330; J1100; J2710; J0690; J2405; J3010; J1170 ×2; J1885; J2704; J1644; J2001

== ENCOUNTER → 2023-03-09 | Outpatient (CLI) | payer OTHER ==
--- NOTE | 2023-03-10 07:41 | MM ---
Reason for Exam: Screening (asymptomatic). Last mammogram was performed 1 year(s) and 3 month(s) ago. Patient History: Menarche at age 13. First Full-Term at age 24. Hysterectomy at age 35. Postmenopausal. Patient used Estrogen for 7 years. Maternal grandmother had breast cancer. Risk Values: Annika 5 year model risk: 0.9%. NCI Lifetime model risk: 7.9%. Prior Study Comparison: 02/02/2019 Bilateral Screening Mammogram, [facility]. 08/13/2020 Bilateral Screening Mammogram, [facility]. 12/02/2021 Bilateral Screening Mammogram, [facility]. Tissue Density: There are scattered fibroglandular densities. Findings: Analyzed By CAD. Small scattered benign-appearing round calcifications bilaterally more numerous in the right breast and loosely grouped within the bilateral axilla are redemonstrated. There is no suspicious new group of microcalcifications or new suspicious mass in either breast. Overall Assessment: Benign, BI-RAD 2 Management: Screening Mammogram of both breasts in 1 year. A clinical breast exam by your physician is recommended on an annual basis and results should be correlated with mammographic findings. Electronically signed and approved by: oLng Cisneros M.D.
== END | disposition home or self-care (01) ==
LOC: RADMAMWWP 16:26
PROVIDERS: ATTEND Internal Medicine
DX: Z12.31 Encounter for screening mammogram for malignant neoplasm of breast (principal); Z78.0 Asymptomatic menopausal state; Z80.3 Family history of malignant neoplasm of breast
CPT/HCPCS: 77067

== ENCOUNTER → 2024-11-17 | Outpatient (CLI) | payer OTHER ==
--- NOTE | 2024-11-20 08:02 | MM ---
Reason for Exam: Screening (asymptomatic). Last mammogram was performed 1 year(s) and 9 month(s) ago. Patient History: Menarche at age 13. First Full-Term at age 24. Hysterectomy at age 35. Postmenopausal. Patient used Estrogen for 7 years. Maternal grandmother had breast cancer. Risk Values: Annika 5 year model risk: 0.9%. NCI Lifetime model risk: 7.8%. Prior Study Comparison: 08/13/2020 Bilateral Screening Mammogram, [facility]. 12/02/2021 Bilateral Screening Mammogram, [facility]. 03/09/2023 Bilateral MG screening mammo w CAD, [facility]. Tissue Density: The breasts are almost entirely fatty. Findings: Analyzed By CAD. Right breast: There is no suspicious group of microcalcifications or new suspicious mass. Benign-appearing calcifications right breast. Left breast: There is no suspicious group of microcalcifications or new suspicious mass. Overall Assessment: Benign, BI-RAD 2 Management: Screening Mammogram of both breasts in [address] [facility] will attempt to contact patient to return for supplemental views and ultrasound if indicated. Patient should continue monthly self-breast exams. A clinical breast exam by your physician is recommended on an annual basis. This exam should not preclude additional follow-up of suspicious palpable abnormalities. Note on Annika scores and lifetime risk: 1. A Annika score greater than 3% is considered moderate risk. If this is the case, consider specialist referral to assess eligibility for a risk reducing agent. 2. If overall lifetime risk for the development of breast cancer is 20% or higher, the patient may qualify for future screening with alternating mammogram and breast MRI. [facility], , 11/20/2024 7:58 AM. Electronically signed and approved by: Triston Pretty DO
== END | disposition home or self-care (01) ==
LOC: RADMAMWWP 07:47
PROVIDERS: ATTEND Internal Medicine
DX: Z12.31 Encounter for screening mammogram for malignant neoplasm of breast (principal); Z78.0 Asymptomatic menopausal state; Z80.3 Family history of malignant neoplasm of breast; R92.313 Mammographic fatty tissue density, bilateral breasts
CPT/HCPCS: 77067